=== PATIENT | female | born 1990 | race Caucasian/White ===

== ENCOUNTER 2022-02-02 15:13 | Inpatient (IN) ==
[2022-02-02] MEDS ORDERED: PENICILLIN G POTASSIUM 6 MU in DEXTROSE 5% 250 ML IV STA (15:23)
[2022-02-02] MEDS ORDERED: OXYTOCIN 30 UNITS/500 ML BAG IV PRN ×2 (15:23→18:32)
[2022-02-02] MEDS: LACTATED RINGER'S 1,000 ML IV PRN ×2 (15:36→16:45)
[2022-02-02] MEDS ORDERED: ePHEDrine sulfate 50 MG/ML AMP ONE (16:03)
[2022-02-02] MEDS ORDERED: fentaNYL citrate 100 MCG/2 ML VIAL ONE (16:03)
[2022-02-02] MEDS ORDERED: SODIUM CHLORIDE 0.9% INJ 10 ML VIAL ONE (16:04)
[2022-02-02] MEDS ORDERED: BUPIVACAINE 0.25% 30 ML VIAL ONE (16:04)
[2022-02-02] MEDS ORDERED: fentaNYL 2MCG/ML ROPIVACAINE 1.25MG/ML 100 ML BAG EPI ONE (16:04)
[2022-02-02 16:19] LABS: Hematocrit (blood only) 34.7 % (37-47); Hemoglobin 11.6 g/dL (12.0-16.0); Mean Corpuscular Hemoglobin 28.6 pg (25-34); Mean Corpuscular Hgb Conc 33.4 g/dL (32-36); Mean Corpuscular Volume 85.7 fL (80-100); Mean Platelet Volume 8.6 fL (7.4-10.4); Platelet Count 316 K/uL (130-400); RDW Coefficient of Variation 13.8 % (11.5-14.5); RDW Standard Deviation 43.5 fL (36.4-46.3); Red Blood Count 4.05 M/uL (4.2-5.4); White Blood Count 6.93 K/uL (4.8-10.8)
--- NOTE | 2022-02-02 16:25 | Anesthesiology Consultation ---
Date of Service February 02, 2022 Assessment & Plan (1) Encounter for pre-operative examination: Chart Review Chart Review: Patient NOT seen in Pre Admission Testing and Acceptable Risk for Labor Epidural Consults Requested none History Height/Weight Height: 5 ft 3 in Weight: 71.668 kg Allergies Allergy/AdvReac Type Severity Reaction Status Date / Time No Known Allergies Allergy Unverified 12/19/21 12:01 Medications Home Medications Medication Instructions Recorded Confirmed Last Taken No Known Home Medications 12/19/20 12/19/20 Unknown famotidine 20 mg tablet (Pepcid) 20 mg PO DAILY #30 tab 12/17/21 12/19/21 Unknown ferrous sulfate 325 mg (65 mg 325 mg PO DAILY #60 tab 12/17/21 12/18/21 08:00 iron) tablet prenat.vits,nicky,eip-ahtl-rsfds 1 tab PO DAILY #90 tab 12/17/21 12/19/21 12/18/21 08:00 Active Medications Generic Name Dose Route Start Last Admin Trade Name Freq PRN Reason Stop Dose Admin Lactated Ringer's 1,000 mls @ 125 mls/hr 02/02/22 15:23 02/02/22 16:00 Lr IV 02/04/22 15:22 999 mls/hr .Q8H PRN Infusion L&D Protocol Protocol Past Medical History Medical History No pertinent past medical history Exercise / Class Metabolic Activity II 4-5 Yardwork/Stairs/Walk up hill Past Surgical History Surgical History No pertinent past surgical history Past Anesthesia History No Hx of Anesthesia Complications and No Family Hx of Anesthesia Complications History of PONV No Hx of PONV and No Hx of Motion Sickness Social History Smoking Status: Never smoker Do You Dip or Chew Tobacco: No Hx Alcohol Use: No Hx Substance Use: No substance use type: does not use Physical Exam Vital Signs Last Vital Signs Temp 36.7 C 02/02/22 15:45 Pulse 83 02/02/22 15:45 Resp 16 02/02/22 15:45 BP 112/69 02/02/22 15:45 Testing Laboratory Results 02/02/22 15:39
[2022-02-02] MEDS ORDERED: METHYLERGONOVINE MALEATE 0.2 MG/ML AMP ONE (16:57)
[2022-02-02] MEDS ORDERED: miSOPROStoL 200 MCG TAB ONE (16:59)
[2022-02-02] MEDS ORDERED: ERYTHROMYCIN OP OINT 1 GM PKT ONE (17:00)
[2022-02-02] MEDS ORDERED: ONDANSETRON INJ 2 MG/ML 2 ML VIAL ONE (17:45)
[2022-02-02] MEDS ORDERED: IBUPROFEN 600 MG TAB PO ONE (18:08)
[2022-02-02] MEDS ORDERED: PENICILLIN G POTASSIUM 3 MU in DEXTROSE 5% 100 ML IV PRN (18:23)
[2022-02-02] MEDS ORDERED: HYDROCORTISONE ACETATE 25 MG SUPP PR PRN (18:32)
[2022-02-02] MEDS ORDERED: BENZOCAINE 20% AER SPR 82.5 GM CAN EXT PRN (18:32)
[2022-02-02] MEDS ORDERED: bisacodyL 10 MG SUPP PR PRN (18:32)
[2022-02-02] MEDS ORDERED: METHYLERGONOVINE MALEATE 0.2 MG/ML AMP IM ONE (18:50)
[2022-02-02] MEDS ORDERED: miSOPROStoL 200 MCG TAB PR ONE (18:50)
[2022-02-02] MEDS ORDERED: DIPHTHERIA/TETANUS/PERTUSSIS 0.5 ML SYR/VIAL IM ONE (19:00)
[2022-02-02] MEDS: ACETAMINOPHEN 325 MG TAB PO PRN (19:51)
[2022-02-02] MEDS: DOCUSATE SODIUM 100 MG CAP PO SCH (21:48)
--- NOTE | 2022-02-03 03:07 | Delivery Summary ---
DELIVERY NOTE: The patient delivered a live infant male in left occiput anterior presentation. This was a left hand compound presentation with a tight nuchal cord, which was cut and reduced. w as placed on mother's abdomen. The patient's weight and Apgars are in the pediatric record. Cord bl ood was obtained. Placenta was spontaneously delivered. Inspection of the placenta shows a normal l ooking 3-vessel placenta. Prior to delivery, the patient was known to have light meconium after spring ficial rupture of membranes. Inspection of the perineum shows no laceration or tears. Estimated blo od loss was 450 mL. The patient and baby are doing well in recovery. All instruments are accounted for x2. Job ID: [id number]
[2022-02-03 07:53] LABS: Hematocrit (blood only) 35.6 % (37-47); Hemoglobin 11.9 g/dL (12.0-16.0); Mean Corpuscular Hemoglobin 28.1 pg (25-34); Mean Corpuscular Hgb Conc 33.4 g/dL (32-36); Mean Corpuscular Volume 84.2 fL (80-100); Mean Platelet Volume 8.4 fL (7.4-10.4); Platelet Count 273 K/uL (130-400); RDW Coefficient of Variation 14.2 % (11.5-14.5); RDW Standard Deviation 43.8 fL (36.4-46.3); Red Blood Count 4.23 M/uL (4.2-5.4); White Blood Count 10.97 K/uL (4.8-10.8)
[2022-02-03] MEDS: ACETAMINOPHEN 325 MG TAB PO PRN ×2 (08:28→14:35)
[2022-02-03] MEDS: DOCUSATE SODIUM 100 MG CAP PO SCH ×2 (08:28→20:21)
[2022-02-03] MEDS: IBUPROFEN 600 MG TAB PO PRN ×2 (08:28→13:10)
[2022-02-03] MEDS: PRENATAL VITAMIN 1 TAB PO SCH (08:29)
--- NOTE | 2022-02-03 09:29 | Obstetrical Progress Note ---
Date of Service February 03, 2022 Subjective Ambulation: ambulating normally Voiding: no voiding problems Passing Gas:: Yes Diet Tolerance:: regular diet Lochia:: Small Feeding Type:: breast feeding Current Pain Level(1-10): 0 doing well Physical Exam Constitutional WD/WN, vitals as above abdomen soft and non-tender no edema neg Homna's tent d/c in AM Results & Data ([facility]) Vital Signs (Past 12 Hours) Vital Signs Temp Pulse Resp BP Pulse Ox 02/03/22 08:20 36.5 C 69 18 107/68 99 02/03/22 04:00 36.6 C 58 L 16 112/71 99 02/02/22 23:30 37.1 C 67 16 96/60 L 100 Laboratory Results Laboratory Results - last 72 hr 02/02/22 02/02/22 02/03/22 15:25 15:39 07:26 WBC 6.93 10.97 H RBC 4.05 L 4.23 Hgb 11.6 L 11.9 L Hct 34.7 L 35.6 L MCV 85.7 84.2 MCH 28.6 28.1 MCHC 33.4 33.4 RDW Std Deviation 43.5 43.8 RDW Coeff of Mani 13.8 14.2 Plt Count 316 273 MPV 8.6 8.4 SARS-CoV-2, RNA, NAAT NEGATIVE
[2022-02-03] MEDS ORDERED: bisacodyL 5 MG TABEC PO SCH (20:00)
[2022-02-04 07:36] LABS: Hematocrit (blood only) 37.7 % (37-47); Hemoglobin 12.5 g/dL (12.0-16.0)
[2022-02-04] MEDS: PRENATAL VITAMIN 1 TAB PO SCH (08:01)
[2022-02-04] MEDS: DOCUSATE SODIUM 100 MG CAP PO SCH (08:01)
[2022-02-04] MEDS: IBUPROFEN 600 MG TAB PO PRN (08:11)
--- NOTE | 2022-02-04 08:52 | Obstetrical Progress Note ---
Date of Service February 04, 2022 Assessment & Plan (1) Normal course: PPD #2 pt doing well d/c home with instructions Results & Data ([facility]) Vital Signs (Past 12 Hours) Vital Signs Temp Pulse Resp BP Pulse Ox 02/03/22 23:15 36.6 C 60 16 90/51 L 100
[2022-02-04] MEDS: ACETAMINOPHEN 325 MG TAB PO PRN (09:53)
[2022-02-04] MEDS ORDERED: MAGNESIUM HYDROXIDE SUSP 30 ML UDC PO PRN (10:23)
== END 2022-02-04 13:50 | disposition home or self-care (01) | DRG 807 ==
LOC: OPB 15:13 → 4S1 15:14 → 4E2 20:26